=== PATIENT | female | born 1995 ===

== ENCOUNTER 2017-06-06 14:47 | Outpatient (CLI) | payer OTHER ==
[~2017-06-06] VITALS: Ht 167.6 cm; Wt 79.0 kg
[2017-06-06 15:15] VITALS: BP 117/69
[2017-06-06] MEDS ORDERED: ACETAMINOPHEN 500 MG TAB PO PRN (15:45)
[2017-06-06] MEDS ORDERED: PRENTAB9 PO (15:54)
[2017-06-06] MEDS ORDERED: LOPERAMIDE 2 MG CAP PO ONE (17:00)
--- NOTE | 2017-06-06 17:22 | IPNPDOC ---
Text Note Date of Service The patient was seen on 06/06/17 at 1644. NOTE SUBJECTIVE: Patient is a 22 year old female who is a at 20.3 weeks gestation with an JR of 10/21/17 based off of her LMP. She initiated care in her first trimester at [facility] in [place]. Her has been uncomplicated. She presents to L&D with complaints of left lower quadrant pain that started this morning. She reports her pain to be a 5/10. It was intermittent this morning and more constant now. Reports that it is not aggravated by movement. Does report having loose stools for the last 3 days. States she had 3 loose stools yesterday and 2 today. Reports active movement. Denies leaking of fluid, contractions or vaginal bleeding. Past medical history: pancreatitis and an ovarian cyst Surgical history: PE tubes and tonsillectomy Family history: DM, heart disease, and high cholesterol Social history: , stationed in [place] and patient still living in [place]. Denies use of tobacco, alcohol, or illicit drug use. OBJECTIVE: FHR 145. No contractions noted on EFM. Abdomen palpates tender on lower left quadrant, left adnexal. No hepatosplenomegaly noted. Fundus at umbilicus. Urine dipstick negative. ASSESSMENT: IUP at 20.3 weeks gestation, left lower quadrant pain likely related to bowel or persistent ovarian cyst patient has had. PLAN:Patient given Tylenol 1000 mg PO for pain and a warm pack to help with pain. Given Imodium given for diarrhea. Reviewed with patient that this may be pain related to her ovarian cyst or bowel irritability. Patient encouraged to call provider if pain gets worse, fever, or if she has vaginal bleeding. Encouraged to maintain routine OB appointments. VS,Fishbone, I+O VS, Fishbone, I+O Vital Signs Date Time Temp Pulse Resp B/P (MAP) Pulse Ox O2 Delivery O2 Flow Rate FiO2 06/06/17 15:15 98.7 85 16 117/69 (85) YENI STOREY CNM Jun 06, 2017 17:21
== END 2017-06-06 16:56 | disposition home or self-care (01) ==
LOC: M LDO 14:47
PROVIDERS: ATTEND Advanced Practice Midwife
DX: O26.892 Other specified pregnancy related conditions, second trimester (principal); R10.32 Left lower quadrant pain; R19.7 Diarrhea, unspecified; Z3A.20 20 weeks gestation of pregnancy